=== PATIENT | female | born 1995 | race African-American/Black ===

== ENCOUNTER 2017-01-26 23:55 | Emergency (ER) | payer MEDICARE, OTHER ==
[~2017-01-26 23:55] MED LIST: BACTRIM DS TABL1 TA1 PO; CLONIDINE; LORTAB 5/500 TA1 TA1 PO; PRILOSEC20 MG DOB
== END 2017-01-27 04:44 | disposition home or self-care (01) ==
LOC: CED 23:55
DX: L02.412 Cutaneous abscess of left axilla (principal); F17.200 Nicotine dependence, unspecified, uncomplicated; Z23 Encounter for immunization
CPT/HCPCS: 10060; 84703; 87070; 87205; 90471; 90715; 99283